=== PATIENT | male | born 1960 | race Caucasian/White ===

== ENCOUNTER 2016-04-24 15:05 | Inpatient (IN) | payer MEDICAID, OTHER ==
[2016-04-24] MEDS ORDERED: SODIUM CHLORIDE 0.9% 1,000 ML with MVI, ADULT NO.4 WITH VIT K 10 ML, THIAMINE 100 MG, F... IV ONE ×4 (15:12)
[2016-04-24] MEDS ORDERED: SODIUM CHLORIDE 0.9% 1,000 ML IV STA ×2 (15:12→15:13)
[2016-04-24] MEDS ORDERED: SODIUM CHLORIDE 0.9% 2,000 ML IV ONE (15:12)
--- NOTE | 2016-04-24 15:19 | ED ---
Psych HPI - General Source: patient, EMS, RN notes reviewed, old records reviewed Mode of arrival: EMS - History of Present Illness MD Complaint: suicidal ideation, feels depressed, other <Stephen Stewart - Last Filed: 04/24/16 19:22> <Irwin King - Last Filed: 04/25/16 00:30> - General Stated Complaint: mental health Time Seen by Provider: 04/24/16 15:05 - History of Present Illness Initial Comments: This is a 55-year-old male history depression and alcoholism history of DVT in the past who called 911 today because he was feeling suicidal and depressed. He drank 1 pint of alcohol when he normally drinks 2 he has no other complaints he has no definite plan and how to hurt himself. He did vomit on himself and urinate on himself per EMS. No trauma is reported. Reports of fevers chills or sweats. (Stephen Stewart) - Related Data Home Medications Medication Instructions Recorded Confirmed No Known Home Medications [No 04/24/16 04/24/16 Known Home Medications] Allergies Allergy/AdvReac Type Severity Reaction Status Date / Time No Known Allergies Allergy Verified 04/24/16 15:29 Review of Systems ROS Other: All systems not noted in ROS Statement are negative. <Stephen Stewart - Last Filed: 04/24/16 19:22> ROS Other: All systems not noted in ROS Statement are negative. <Irwin King - Last Filed: 04/25/16 00:30> ROS Statement: Those systems with pertinent positive or pertinent negative responses have been documented in the HPI. Past Medical History Additional Past Medical History / Comment(s): ALCOHOL ABUSE History of Any Multi-Drug Resistant Organisms: None Reported Past Surgical History: No Surgical Hx Reported Past Anesthesia/Blood Transfusion Reactions: No Reported Reaction Past Psychological History: Depression Smoking Status: Current every day smoker Past Alcohol Use History: Abuse Additional Past Alcohol Use History / Comment(s): pt drinks a 5th of vodka daily Past Drug Use History: None Reported - Past Family History Father Family Medical History: Hypertension <Stephen Stewart - Last Filed: 04/24/16 19:22> General Exam General appearance: alert, in no apparent distress, lethargic Head exam: Present: atraumatic, normocephalic, normal inspection Eye exam: Present: normal appearance, PERRL, EOMI. Absent: scleral icterus, conjunctival injection, periorbital swelling ENT exam: Present: mucous membranes dry Neck exam: Present: normal inspection. Absent: tenderness, meningismus, lymphadenopathy Respiratory exam: Present: normal lung sounds bilaterally. Absent: respiratory distress, wheezes, rales, rhonchi, stridor Cardiovascular Exam: Present: normal rhythm, tachycardia, normal heart sounds. Absent: systolic murmur, diastolic murmur, rubs, gallop, clicks GI/Abdominal exam: Present: soft, normal bowel sounds. Absent: distended, tenderness, guarding, rebound, rigid Extremities exam: Present: normal inspection, full ROM, normal capillary refill. Absent: tenderness, pedal edema, joint swelling, calf tenderness Back exam: Present: normal inspection Neurological exam: Present: alert, oriented X3, CN II-XII intact Psychiatric exam: Present: depressed, flat affect, suicidal ideation Skin exam: Present: warm, dry, intact, normal color. Absent: rash <Stephen Stewart - Last Filed: 04/24/16 19:22> <Irwin King - Last Filed: 04/25/16 00:30> - General Exam Comments Initial Comments: This is a well-developed well-nourished awake but lethargic male with the smell of alcohol conjoiners is on his breath (Stephen Stewart) Course <Stephen Stewart - Last Filed: 04/24/16 19:22> <Irwin King - Last Filed: 04/25/16 00:30> Vital Signs 04/24/16 04/24/16 04/24/16 15:28 16:23 17:32 Temperature 97.7 F Pulse Rate 110 H 95 96 Respiratory 20 18 18 Rate Blood Pressure 129/77 123/83 113/70 O2 Sat by Pulse 95 96 96 Oximetry 04/24/16 04/24/16 04/24/16 18:31 19:14 20:00 Temperature Pulse Rate 99 95 98 Respiratory 18 18 Rate Blood Pressure 110/59 105/57 O2 Sat by Pulse 99 97 97 Oximetry - Reevaluation(s) Reevaluation #1: 04/24/16 19:22 The patient will be endorsed to Dr. King who will make final disposition ( Stephen Stewart) Reevaluation #2: 04/25/16 00:30 Medically clear for psychiatric evaluation (Irwin King) Medical Decision Making - Lab Data Result diagrams: 04/24/16 15:23 04/24/16 15:23 <Stephen Stewart - Last Filed: 04/24/16 19:22> - Lab Data Result diagrams: 04/24/16 15:23 04/24/16 15:23 <Irwin King - Last Filed: 04/25/16 00:30> - Medical Decision Making 55 male here for evaluation of psychiatric disease, positive alcohol intoxication, patient will be admitted for psychiatric evaluation and treatment (Irwin King) - Lab Data Lab Results 04/24/16 04/24/16 04/24/16 Range/Units 15:23 15:23 15:23 WBC 8.4 (3.8-10.6) k/uL RBC 5.67 (4.30-5.90) m/uL Hgb 17.4 (13.0-17.5) gm/dL Hct 53.2 H (39.0-53.0) % MCV 93.8 (80.0-100.0) fL MCH 30.6 (25.0-35.0) pg MCHC 32.6 (31.0-37.0) g/dL RDW 13.7 (11.5-15.5) % Plt Count 222 (150-450) k/uL Neutrophils % (Manual) 65.0 % Lymphocytes % (Manual) 29.0 % Monocytes % (Manual) 6.0 % Neutrophils # (Manual) 5.5 (1.3-7.7) k/uL Lymphocytes # (Manual) 2.4 (1.0-4.8) k/uL Monocytes # (Manual) 0.5 (0-1.0) k/uL Nucleated RBCs 0 (0-0) /100 WBC Anisocytosis (manual) Present Sodium 143 (137-145) mmol/L Potassium 4.4 (3.5-5.1) mmol/L Chloride 98 (98-107) mmol/L Carbon Dioxide 22 (22-30) mmol/L Anion Gap 23 mmol/L BUN 11 (9-20) mg/dL Creatinine 0.82 (0.66-1.25) mg/dL Est GFR (MDRD) Af Amer >60 (>60 ml/min/1.73 sqM) Est GFR (MDRD) Non-Af >60 (>60 ml/min/1.73 sqM) Glucose 96 (74-99) mg/dL Calcium 8.6 (8.4-10.2) mg/dL Magnesium 1.7 (1.6-2.3) mg/dL Total Bilirubin 0.7 (0.2-1.3) mg/dL AST 63 H (17-59) U/L ALT 70 (21-72) U/L Alkaline Phosphatase 88 (38-126) U/L Total Protein 6.8 (6.3-8.2) g/dL Albumin 4.2 (3.5-5.0) g/dL Salicylates <1.0 mg/dL Urine Opiates Screen Not Detected (NotDetected) Ur Oxycodone Screen Not Detected (NotDetected) Urine Methadone Screen Not Detected (NotDetected) Ur Propoxyphene Screen Not Detected (NotDetected) Acetaminophen <10.0 ug/mL Ur Barbiturates Screen Not Detected (NotDetected) U Tricyclic Antidepress Not Detected (NotDetected) Ur Phencyclidine Scrn Not Detected (NotDetected) Ur Amphetamines Screen Not Detected (NotDetected) U Methamphetamines Scrn Not Detected (NotDetected) U Benzodiazepines Scrn Not Detected (NotDetected) Urine Cocaine Screen Not Detected (NotDetected) U Marijuana (THC) Screen Not Detected (NotDetected) Serum Alcohol 285 mg/dL Disposition <Stephen Stewart - Last Filed: 04/24/16 19:22> <Irwin King - Last Filed: 04/25/16 00:30> Clinical Impression: Alcohol intoxication, Suicidal ideation, Depression Disposition: TRANSFER TO PSYCH HOSP/UNIT Condition: Fair Referrals: Michael Lainez MD [Primary Care Provider] - 1-2 days
[2016-04-24 15:47] LABS: CH 31.2; CHCM 33.5; HCT 53.2 % (39.0-53.0); HDW 2.48; HGB 17.4 gm/dL (13.0-17.5); MCH 30.6 pg (25.0-35.0); MCHC 32.6 g/dL (31.0-37.0); MCV 93.8 fL (80.0-100.0); MPO Flag Slight; Mean Platelet Volume 6.8; RBC 5.67 m/uL (4.30-5.90); RDW 13.7 % (11.5-15.5); WBC 8.4 k/uL (3.8-10.6); WBC (Perox) 42.19
[2016-04-24 15:54] LABS: ALT 70 U/L (21-72); AST 63 U/L (17-59); Acetaminophen <10.0 ug/mL; Alkaline Phosphatase 88 U/L (38-126); Anion Gap 23 mmol/L; Blood Urea Nitrogen 11 mg/dL (9-20); Calcium 8.6 mg/dL (8.4-10.2); Carbon Dioxide 22 mmol/L (22-30); Chloride 98 mmol/L (98-107); Glucose 96 mg/dL (74-99); Magnesium 1.7 mg/dL (1.6-2.3); Non-African American GFR(MDRD) >60 (>60 ml/min/1.73 sqM); Potassium 4.4 mmol/L (3.5-5.1); Salicylate <1.0 mg/dL; Sodium 143 mmol/L (137-145); Total Bilirubin 0.7 mg/dL (0.2-1.3); Total Protein 6.8 g/dL (6.3-8.2)
[2016-04-24 15:57] LABS: Alcohol 285 mg/dL
[2016-04-24 16:23] LABS: Add Differential Manual Differential
[2016-04-24 16:25] LABS: Nucleated Red Blood Cells 0 /100 WBC (0-0); Total Cells Counted 100
[2016-04-24] MEDS ORDERED: ONDANSETRON 4 MG/2 ML VIAL IVP STA ×2 (17:29→23:24)
[2016-04-24] MEDS ORDERED: PROMETHAZINE INJ 25 MG in SODIUM CHLORIDE 0.9% 50 ML IVPB STA (18:45)
[2016-04-25] MEDS ORDERED: MAG HYDROX/AL HYDROX/SIMETH 30 ML CUP PO PRN (03:58)
[2016-04-25] MEDS ORDERED: MAGNESIUM HYDROXIDE 2,400 MG/10 ML CUP PO PRN (03:58)
[2016-04-25] MEDS ORDERED: ACETAMINOPHEN TAB 325 MG TAB PO PRN (03:58)
[2016-04-25] MEDS: LORazepam 1 MG TAB PO PRN ×5 (05:10→21:04)
[2016-04-25] MEDS: NICOTINE 21MG/24HR PATCH TRANSDERM SCH (08:27)
--- NOTE | 2016-04-25 14:40 | P.HP ---
Psychiatric H&P - . History & Physical: Allergies Allergy/AdvReac Type Severity Reaction Status Date / Time No Known Allergies Allergy Verified 04/24/16 15:29 Vital Signs Temp 98.2 F 04/25/16 12:11 Pulse 107 H 04/25/16 12:11 Resp 20 04/25/16 12:11 BP 126/70 04/25/16 12:11 Pulse Ox 97 04/25/16 12:11 Laboratory Last Values WBC 8.4 k/uL (3.8-10.6) 04/24/16: RBC 5.67 m/uL (4.30-5.90) 04/24/16: Hgb 17.4 gm/dL (13.0-17.5) 04/24/16: Hct 53.2 % (39.0-53.0) H 04/24/16: MCV 93.8 fL (80.0-100.0) 04/24/16: MCH 30.6 pg (25.0-35.0) 04/24/16: MCHC 32.6 g/dL (31.0-37.0) 04/24/16: RDW 13.7 % (11.5-15.5) 04/24/16: Plt Count 222 k/uL (150-450) 04/24/16: Neutrophils % (Manual) 65.0 % 04/24/16: Lymphocytes % (Manual) 29.0 % 04/24/16: Monocytes % (Manual) 6.0 % 04/24/16: Neutrophils # (Manual) 5.5 k/uL (1.3-7.7) 04/24/16: Lymphocytes # (Manual) 2.4 k/uL (1.0-4.8) 04/24/16: Monocytes # (Manual) 0.5 k/uL (0-1.0) 04/24/16: Nucleated RBCs 0 /100 WBC (0-0) 04/24/16 Anisocytosis (manual) Present 04/24/16 15: Sodium 143 mmol/L (137-145) 04/24/16: Potassium 4.4 mmol/L (3.5-5.1) 04/24/16 15: Chloride 98 mmol/L (98-107) 04/24/16 15: Carbon Dioxide 22 mmol/L (22-30) 04/24/16 15: Anion Gap 23 mmol/L 04/24/16 15: BUN 11 mg/dL (9-20) 04/24/16: Creatinine 0.82 mg/dL (0.66-1.25) 04/24/16: Est GFR (MDRD) Af Amer >60 (>60 ml/min/1.73 sqM) 04/24/16: Est GFR (MDRD) Non-Af >60 (>60 ml/min/1.73 sqM) 04/24/16: Glucose 96 mg/dL (74-99) 04/24/16: Calcium 8.6 mg/dL (8.4-10.2) 04/24/16: Magnesium 1.7 mg/dL (1.6-2.3) 04/24/16: Total Bilirubin 0.7 mg/dL (0.2-1.3) 04/24/16: AST 63 U/L (17-59) H 04/24/16: ALT 70 U/L (21-72) 04/24/16: Alkaline Phosphatase 88 U/L (38-126) 04/24/16: Total Protein 6.8 g/dL (6.3-8.2) 04/24/16: Albumin 4.2 g/dL (3.5-5.0) 04/24/16: TSH 1.020 mIU/L (0.465-4.680) 04/24/16: Salicylates <1.0 mg/dL 04/24/16: Urine Opiates Screen Not Detected (NotDetected) 04/24/16: Ur Oxycodone Screen Not Detected (NotDetected) 04/24/16: Urine Methadone Screen Not Detected (NotDetected) 04/24/16: Ur Propoxyphene Screen Not Detected (NotDetected) 04/24/16 15: Acetaminophen <10.0 ug/mL 02/10/17 15:23 Ur Barbiturates Screen Not Detected (NotDetected) 04/24/16 15:23 U Tricyclic Antidepress Not Detected (NotDetected) 04/24/16 15:23 Ur Phencyclidine Scrn Not Detected (NotDetected) 04/24/16 15:23 Ur Amphetamines Screen Not Detected (NotDetected) 04/24/16 15:23 U Methamphetamines Scrn Not Detected (NotDetected) 04/24/16 15:23 U Benzodiazepines Scrn Not Detected (NotDetected) 04/24/16 15:23 Urine Cocaine Screen Not Detected (NotDetected) 04/24/16 15:23 U Marijuana (THC) Screen Not Detected (NotDetected) 04/24/16 15:23 Serum Alcohol 285 mg/dL 04/24/16 15:23 04/25/16 14:29 IDENTIFYING DATA: This patient is a 55-year-old twice male who was admitted to the mental health unit through the emergency room after he called 911 reporting suicidal ideation. HPI: The patient states he's been experiencing depression due to seasonal affective disorder. He reports a long history of major depressive episodes. He has a history of alcohol use disorder and reports he was sober for 1 year and relapsed 4 days ago. He states there was no precipitant. He has been consuming a plate to a pint and a half daily for 4 days. He presented with a serum alcohol level of 285. He states that he did have suicidal thoughts yesterday but none today. In fact he demands to be discharged now as he is supposed to take a flight to [place] at 6:30 AM tomorrow. He is now minimizing symptoms and states that his sleep appetite energy are all stable. He is endorsing no tearfulness or crying spells. He reports intermittent symptoms of anxiety but no significant panic attacks. He denies any history of hypomanic or manic episodes. He is reporting no homicidal thoughts and no presence of any auditory or visual hallucinations. He denies having any specific delusions. He reports having no ownership of firearms. He states because of seasonal affective symptoms and feeling lonely he had suicidal thoughts last night in the context of being intoxicated with alcohol. PAST PSYCHIATRIC HISTORY: This is the patient's second psychiatric admission. His first was on this unit under the care of Dr. Negrete in May 2015. He has previously been treated with BuSpar, trazodone, Celexa. He reports she's been on no psychotropic medications since last January. He states he does not intend on restarting any psychotropic medication. He used to attend outpatient mental health services at [facility] but no longer attends since September. No history of suicide attempts no other self-injurious behavior reported. PMH: History of deep venous thrombosis in 2016 ALLERGIES: NO KNOWN DRUG ALLERGIES MEDICATIONS: None CHEMICAL DEPENDENCY HISTORY: Recent relapse with alcohol use 1-1-1/2 pints per day for 4 days. He reports being sober for 1 year prior to that. He does have a history of drinking alcohol excessively for 30 years with the maximum being 1/ 5 per day. His longest none sobriety was 2 years. He was in [place] inpatient in 2007. FAMILY PSYCHIATRIC HISTORY: Paternal grandfather committed suicide psychiatric diagnosis unknown FAMILY CHEMICAL DEPENDENCY HISTORY: Maternal grandfather alcohol dependent SOCIAL HISTORY: The patient is 55 years old he is twice . His second divorce was finalized in September. He has 2 biological adult children and 1 stepchild. One of his children resides in [place] the other is in [place]. 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 He has a high school education with 2 years of trade school. He has 1 brother and 1 sister. He states his family is in [place] and he is supposed to fly down and take possession of a condo where he will reside alone. Abuse history none reported legal history he states he was arrested for driving on a suspended license prior documentation suggests that he did have a DUI arrest. He was born and raised in the [place] area he states his parents were supportive. MENTAL STATUS EXAM: The patient is a balding male appearing his stated age. He seated calmly eye contact is appropriate speech is fluent and spontaneous nonpressured. He presents to the hospital reporting symptoms of depression with suicidal ideation. At this moment he recants that history and states he stable. He is reporting no homicidal ideation. He denies having any auditory or visual hallucinations he is reporting no specific delusions. There is no verbal or physical aggressiveness. He is oriented to person place and date. He is able to spell world backwards. He is able to recall 3 words after delay of approximate 3 minutes. Insight and judgment limited. Thought process for the most part can be linear, he can be somewhat circular in asking me the same question over and over regarding his discharge. He demonstrates no loose associations or flight of ideas. He maintains a constricted affect. STRENGTHS/WEAKNESSES: Strengths: Reported support from family, housing, willingness to present for treatment weaknesses: Ongoing use of alcohol INTELLECTUAL FUNCTIONING: Average IMPRESSIONS: [] 1. Major depressive disorder recurrent, alcohol use disorder 2. Remote history of DVT 3. Psychosocial dysfunction due to psychiatric symptoms including alcohol use disorder PLAN: The patient has been admitted to the mental health unit he has signed in voluntarily. We reviewed his symptoms. He is minimizing his symptoms at this time he is not agreeable to the initiation of an antidepressant medication. We are monitoring his vital signs in using Ativan as needed to prevent alcohol withdrawal which is unlikely if his report is correct. We have requested a routine medical consultation. Social work will meet with the patient to complete a psychosocial assessment and begin discharge planning. With reluctance the patient is willing to have us contact his parents as he identifies no local support. The patient is encouraged to participate in the milieu we will monitor him for safety. We will need an appropriate length of time to observe and evaluate his safety risk. We will continue the conversation regarding use of an antidepressant. At this point he does not wish to have us arrange inpatient chemical dependency treatment. We will discuss that further.
[2016-04-25 16:35] VITALS: BMI 25.0
--- NOTE | 2016-04-25 20:37 | CONS ---
DATE OF CONSULTATION: CHIEF COMPLAINT: Major depression and alcohol overdose. HISTORY OF PRESENT ILLNESS: This is another admission for this 55-year-old white male. He apparently was drinking heavily and was brought into the emergency room. It was determined that he was majorly depressed and a threat to himself and he was admitted. He has been on [facility] before. He is on no medications. REVIEW OF SYSTEMS: He has had no delirium tremens, diplopia, chest pain or shortness of breath, abdominal pain, nausea, vomiting, hematemesis, melena, hematochezia, jaundice, pancreatitis, kidney disease, diabetes, etc. Past medical history, family history, personal and social histories are all otherwise unremarkable or noncontributory. He has had no surgery. He is not allergic to any medication. He is not currently taking any. He has quit smoking, but he does drink heavily. PHYSICAL EXAMINATION: VITAL SIGNS: Blood pressure is 116/84 with a pulse of 91, respirations 35 and he is afebrile. GENERAL: Appeared to be somewhat disheveled. He was not in DTs. Skin color is normal. Skin is warm and dry. Lymph nodes are not enlarged. Head, ears, eyes, nose, mouth, and throat were normal. Pupils are equal, round, reactive. Ears are clear. Extraocular movements are normal. Nose, mouth, and throat were normal. Neck veins not distended. Chest is clear. Cardiac exam is normal. Abdomen is soft, nontender. Extremities are normal. IMPRESSION: 1. Major depression. 2. Alcoholism. RECOMMENDATIONS: None at this time. He is very anxious to leave the hospital today stating he has to catch a plane tomorrow to [place]. He may sign out AGAINST MEDICAL ADVICE.
[2016-04-26] MEDS: LORazepam 1 MG TAB PO PRN ×5 (03:43→21:34)
[2016-04-26] MEDS: NICOTINE 21MG/24HR PATCH TRANSDERM SCH (08:29)
--- NOTE | 2016-04-26 11:26 | P.PN ---
Progress Note - Text Interval history: The patient is found in the hallway he follows me to an interview room. He states his mood is stable he reports he was able to sleep last night appetite is intact. He reports that he has showered. He is attending groups. We again discussed the potential need for an antidepressant and he does not wish to start one. He states that when he is sober for an extended period his mood symptoms subside. He reports he will consider starting her medication once he is down in [place]. Mental status exam: The patient is alert he seated calmly eye contact is appropriate speech is fluent spontaneous nonpressured. He reports his mood is "fine" affect is constricted. He denies having any hopelessness thinking or any suicidal or homicidal ideation intent or plan. He is reporting no racing thoughts there is no evidence of any hypomania or richard. He is endorsing no hallucinations there is no evidence of psychosis. He is reporting no specific delusions. Insight and judgment grossly intact. He is oriented to person place and date. There is no physical evidence of withdrawal from alcohol. He demonstrates no verbal or physical aggressiveness. Plan: We will continue to monitor him for safety blood pressure is within normal limits he remains tachycardic he continues to use Ativan as needed. This most recent crisis is likely due to his recent alcohol intoxication. He does appear to be stabilizing here on the mental health unit. He again verbalizes it is his plan to immediately leave for [place] permanently upon discharge. He continues to have no contact information for his parents who will assist him in [place]. Consider discharge in the next 1-2 days.
[2016-04-27] MEDS: LORazepam 1 MG TAB PO PRN ×2 (03:38→10:12)
[2016-04-27 05:06] VITALS: BP 126/73; PULSE 116; RESP 12; TEMP 97.8
[2016-04-27] MEDS: NICOTINE 21MG/24HR PATCH TRANSDERM SCH (10:11)
--- NOTE | 2016-04-27 10:18 | DS ---
DATE OF ADMISSION: 04/25/2016 DATE OF DISCHARGE: 04/27/2016 CONSULTING PROVIDER: Michael Carilsle reason for medical management. DISCHARGE DIAGNOSES: 1. Unspecified depression versus chronic depression. 2. Alcohol abuse and dependence For brief summary of the admission notes, please refer to the history and physical examination dictated by Dr. Josue Landeros on April 25. Patient presented to the mental health unit after he had 1 pint of alcohol, then he called 911 reporting depression and suicidal ideation. Patient reports that he has been experiencing depression due to seasonal affective disorder. Patient was sober for almost one year and relapsed 4 days ago with any trigger. At the time of his admission to the mental health unit, his blood alcohol was 285. Throughout his hospitalization he denied any suicidal ideation. HOSPITAL COURSE: Patient was admitted on voluntary basis. He was started on CIWA for alcohol detox. Since his admission to the mental health unit, he denied any suicidal thought. He stated that he was supposed to take a flight to [place] but he has insurance on it and postponed it for today as he decided to move to [place] to stay with his friend for good. Patient denied any depressive symptoms, denied any hopeless or helpless feeling. He stated that he used to be depressed when he was because "My was the reason but now since the divorce, I'm feeling okay." Patient reports having no firearms and he stated that he just felt more depressed because he was intoxicated and because he did relapse after one year of sobriety. Patient met with Dr. Landeros 2 days in row and each time patient was not receptive to start any anti-depression medication and he stated that he preferred having no psychotropic medication and dealing with his drinking by attending AA meetings. The mental status examination at the time of the discharge, patient alert, good eye contact. His hygiene and grooming are adequate. Speech is spontaneous and non-pressured. Thought process is linear. He reports no homicidal or suicide ideation or intent or plan. He does not have access to any firearms. He does not feel hopeless or helpless. He did realize that he did relapse and usually alcohol does make him more depressed. His insight to his extended history of alcohol use is good. There is no evidence of hypomania or richard. There is no evidence of psychosis. Cognitive ability has remained stable across the hospitalization as he is alert, oriented to person, place and date. There is no verbal or physical aggression observed. PLAN: Patient will be discharged from the mental health unit today. Patient is planning to take flight tonkirsten to [place] to stay with his parent and pursue alcohol treatment. Patient CIWA at the time of the discharge was 0. Patient is not going through any alcohol withdrawal symptom. He denied suicidal or homicide ideation. Patient was instructed to return to the emergency room if any acute safety concern. Patient was instructed to maintain his sobriety from alcohol and he is aware about the effect of alcohol on his physical and mental status.
== END 2016-04-27 12:16 | disposition home or self-care (01) | DRG 885 ==
LOC: EC 15:05 → 3MHU 04-25 03:19
PROVIDERS: ADMIT Psychiatry & Neurology Psychiatry; ATTEND Psychiatry & Neurology Psychiatry
DX: F33.9 Major depressive disorder, recurrent, unspecified (principal); R45.851 Suicidal ideations; F10.239 Alcohol dependence with withdrawal, unspecified; F10.229 Alcohol dependence with intoxication, unspecified; F17.200 Nicotine dependence, unspecified, uncomplicated; T51.0X1A Toxic effect of ethanol, accidental (unintentional), initial encounter; Y90.8 Blood alcohol level of 240 mg/100 ml or more; Z86.718 Personal history of other venous thrombosis and embolism; Z81.8 Family history of other mental and behavioral disorders; Z81.1 Family history of alcohol abuse and dependence
CPT/HCPCS: 36415; 80053; 80306; 80320; 82075; 83520; 83735; 84443; 85025; 96365; 96366; 96375; 96376; 99285

== ENCOUNTER 2016-05-04 13:22 | Emergency (ER) | payer OTHER ==
[2016-05-04] MEDS ORDERED: LORazepam 2 MG/ML SYRINGE IV STA ×3 (14:07→22:13)
[2016-05-04] MEDS ORDERED: ONDANSETRON 4 MG/2 ML VIAL IVP STA (14:07)
[2016-05-04 14:39] LABS: Basophils % (A) 0 %; CH 31.6; CHCM 34.8; Eosinophils # (A) 0.1 k/uL (0-0.7); Eosinophils % (A) 1 %; HCT 47.7 % (39.0-53.0); HDW 2.48; HGB 15.8 gm/dL (13.0-17.5); Luc # (Auto) 0.13; Luc % (Auto) 2; Lymphocytes # (A) 1.5 k/uL (1.0-4.8); Lymphocytes % (A) 19 %; MCH 30.4 pg (25.0-35.0); MCHC 33.2 g/dL (31.0-37.0); MCV 91.3 fL (80.0-100.0); Mean Platelet Volume 7.5; Monocytes # (A) 0.6 k/uL (0-1.0); Monocytes % (A) 7 %; Neutrophils # (A) 5.3 k/uL (1.3-7.7); Neutrophils % (A) 70 %; RBC 5.22 m/uL (4.30-5.90); RDW 14.4 % (11.5-15.5); WBC 7.6 k/uL (3.8-10.6); WBC (Perox) 7.64
[2016-05-04 14:46] LABS: Anion Gap 15 mmol/L; Blood Urea Nitrogen 12 mg/dL (9-20); Calcium 7.8 mg/dL (8.4-10.2); Carbon Dioxide 28 mmol/L (22-30); Chloride 98 mmol/L (98-107); Glucose 125 mg/dL (74-99); Non-African American GFR(MDRD) >60 (>60 ml/min/1.73 sqM); Potassium 3.8 mmol/L (3.5-5.1); Sodium 141 mmol/L (137-145)
[2016-05-05] MEDS ORDERED: ONDANSETRON ODT 4 MG TAB PO STA ×2 (02:20→10:09)
[2016-05-05] MEDS ORDERED: LORazepam 2 MG/ML SYRINGE IV STA ×2 (02:20→06:55)
--- NOTE | 2016-05-05 03:29 | ED ---
General Adult HPI - General Chief complaint: Alcohol Stated complaint: ETOH Time Seen by Provider: 05/04/16 13:33 Source: patient, EMS, RN notes reviewed Mode of arrival: EMS Limitations: no limitations - History of Present Illness Initial comments: Patient was earlier seen by Dr. Bruno however chart was not completed at that time. Patient was seen by mental health services who is searching for beds for dual diagnosis. Patient is a pleasant 55-year-old male. Patient presents emergency department with concerns for alcohol problems. Patient admits to being depressed and having thoughts to harm himself. No homicidal thoughts. No street drug use. No hallucinations. No physical complaints. - Related Data Home Medications Medication Instructions Recorded Confirmed No Known Home Medications [No 04/24/16 05/04/16 Known Home Medications] Allergies Allergy/AdvReac Type Severity Reaction Status Date / Time No Known Allergies Allergy Verified 05/04/16 13:37 Review of Systems ROS Statement: Those systems with pertinent positive or pertinent negative responses have been documented in the HPI. ROS Other: All systems not noted in ROS Statement are negative. Constitutional: Denies: fever Eyes: Denies: eye pain ENT: Denies: ear pain Respiratory: Denies: cough Cardiovascular: Denies: chest pain Endocrine: Denies: fatigue Gastrointestinal: Reports: nausea, vomiting Genitourinary: Denies: dysuria Musculoskeletal: Denies: back pain Skin: Denies: rash Neurological: Denies: weakness Past Medical History Past Medical History: No Reported History Additional Past Medical History / Comment(s): ALCOHOL ABUSE History of Any Multi-Drug Resistant Organisms: None Reported Past Surgical History: No Surgical Hx Reported Past Anesthesia/Blood Transfusion Reactions: No Reported Reaction Past Psychological History: Depression Smoking Status: Former smoker Past Alcohol Use History: Abuse Additional Past Alcohol Use History / Comment(s): pt drinks a 5th of vodka daily Past Drug Use History: None Reported - Past Family History Father Family Medical History: Hypertension General Exam Limitations: no limitations General appearance: alert, in no apparent distress Head exam: Present: atraumatic Eye exam: Present: normal appearance, PERRL ENT exam: Present: normal oropharynx Neck exam: Present: normal inspection Respiratory exam: Present: normal lung sounds bilaterally Cardiovascular Exam: Present: regular rate, normal rhythm GI/Abdominal exam: Present: soft. Absent: tenderness Extremities exam: Present: normal inspection Neurological exam: Present: alert Psychiatric exam: Present: depressed Skin exam: Absent: rash Course Vital Signs 05/04/16 05/04/16 05/04/16 13:30 17:47 22:23 Temperature 99 F Pulse Rate 108 H 109 H 115 H Respiratory 16 20 18 Rate Blood Pressure 151/91 130/76 136/73 O2 Sat by Pulse 98 96 Oximetry 05/05/16 04:00 Temperature 98.9 F Pulse Rate 78 Respiratory 16 Rate Blood Pressure 109/58 O2 Sat by Pulse 98 Oximetry Medical Decision Making - Medical Decision Making Mental health services plans on transfer. Positive clinical certificate completed. - Lab Data Result diagrams: 05/04/16 14:30 05/04/16 14:30 Lab Results 05/04/16 05/04/16 05/04/16 Range/Units 14:30 14:30 18:32 WBC 7.6 (3.8-10.6) k/uL RBC 5.22 (4.30-5.90) m/uL Hgb 15.8 (13.0-17.5) gm/dL Hct 47.7 (39.0-53.0) % MCV 91.3 (80.0-100.0) fL MCH 30.4 (25.0-35.0) pg MCHC 33.2 (31.0-37.0) g/dL RDW 14.4 (11.5-15.5) % Plt Count 191 (150-450) k/uL Neutrophils % 70 % Lymphocytes % 19 % Monocytes % 7 % Eosinophils % 1 % Basophils % 0 % Neutrophils # 5.3 (1.3-7.7) k/uL Lymphocytes # 1.5 (1.0-4.8) k/uL Monocytes # 0.6 (0-1.0) k/uL Eosinophils # 0.1 (0-0.7) k/uL Basophils # 0.0 (0-0.2) k/uL Sodium 141 (137-145) mmol/L Potassium 3.8 (3.5-5.1) mmol/L Chloride 98 (98-107) mmol/L Carbon Dioxide 28 (22-30) mmol/L Anion Gap 15 mmol/L BUN 12 (9-20) mg/dL Creatinine 0.70 (0.66-1.25) mg/dL Est GFR (MDRD) Af Amer >60 (>60 ml/min/1.73 sqM) Est GFR (MDRD) Non-Af >60 (>60 ml/min/1.73 sqM) Glucose 125 H (74-99) mg/dL Calcium 7.8 L (8.4-10.2) mg/dL Urine Opiates Screen Not Detected (NotDetected) Ur Oxycodone Screen Not Detected (NotDetected) Urine Methadone Screen Not Detected (NotDetected) Ur Propoxyphene Screen Not Detected (NotDetected) Ur Barbiturates Screen Not Detected (NotDetected) U Tricyclic Antidepress Not Detected (NotDetected) Ur Phencyclidine Scrn Not Detected (NotDetected) Ur Amphetamines Screen Not Detected (NotDetected) U Methamphetamines Scrn Not Detected (NotDetected) U Benzodiazepines Scrn Not Detected (NotDetected) Urine Cocaine Screen Not Detected (NotDetected) U Marijuana (THC) Screen Not Detected (NotDetected) Disposition Clinical Impression: Depression, Suicidal ideation, Alcohol abuse, Alcohol intoxication Disposition: TRANSFER TO PSYCH HOSP/UNIT
[2016-05-05 07:51] LABS: Appearance,Urine Cloudy (Clear); Bilirubin,Urine Negative (Negative); Glucose,Urine (UA) 1+ (Negative); Leukocyte Esterase,Urine Negative (Negative); Mucus,Urine Many /hpf; Nitrite,Urine Negative (Negative); Particle Count 10858; Protein,Urine 2+ (Negative); RBC,Urine 5 /hpf (0-5); Specific Gravity,Urine 1.021 (1.001-1.035); UA Billing (MACRO vs. MICRO) MICRO; Urobilinogen,Urine <2.0 mg/dL (<2.0); WBC,Urine 5 /hpf (0-5)
[2016-05-05 08:13] LABS: Ketones,Urine 2+ (Negative)
[2016-05-05 10:35] VITALS: PULSE 94
--- NOTE | 2016-05-05 13:24 | ED ---
Medical Decision Making - Medical Decision Making The patient was evaluated by [facility] service. Patient will be discharged outpatient referral and follow-up. He is not suicidal or homicidal at this time. - Lab Data Result diagrams: 05/04/16 14:30 05/04/16 14:30 Lab Results 05/04/16 05/04/16 05/04/16 Range/Units 14:30 14:30 18:32 WBC 7.6 (3.8-10.6) k/uL RBC 5.22 (4.30-5.90) m/uL Hgb 15.8 (13.0-17.5) gm/dL Hct 47.7 (39.0-53.0) % MCV 91.3 (80.0-100.0) fL MCH 30.4 (25.0-35.0) pg MCHC 33.2 (31.0-37.0) g/dL RDW 14.4 (11.5-15.5) % Plt Count 191 (150-450) k/uL Neutrophils % 70 % Lymphocytes % 19 % Monocytes % 7 % Eosinophils % 1 % Basophils % 0 % Neutrophils # 5.3 (1.3-7.7) k/uL Lymphocytes # 1.5 (1.0-4.8) k/uL Monocytes # 0.6 (0-1.0) k/uL Eosinophils # 0.1 (0-0.7) k/uL Basophils # 0.0 (0-0.2) k/uL Sodium 141 (137-145) mmol/L Potassium 3.8 (3.5-5.1) mmol/L Chloride 98 (98-107) mmol/L Carbon Dioxide 28 (22-30) mmol/L Anion Gap 15 mmol/L BUN 12 (9-20) mg/dL Creatinine 0.70 (0.66-1.25) mg/dL Est GFR (MDRD) Af Amer >60 (>60 ml/min/1.73 sqM) Est GFR (MDRD) Non-Af >60 (>60 ml/min/1.73 sqM) Glucose 125 H (74-99) mg/dL Calcium 7.8 L (8.4-10.2) mg/dL Urine Color Urine Appearance (Clear) Urine pH (5.0-8.0) Ur Specific [place] (1.001-1.035) Urine Protein (Negative) Urine Glucose (UA) (Negative) Urine Ketones (Negative) Urine Blood (Negative) Urine Nitrate (Negative) Urine Bilirubin (Negative) Urine Urobilinogen (<2.0) mg/dL Ur Leukocyte Esterase (Negative) Urine RBC (0-5) /hpf Urine WBC (0-5) /hpf Hyaline Casts (0-2) /lpf Urine Mucus (None) /hpf Urine Opiates Screen Not Detected (NotDetected) Ur Oxycodone Screen Not Detected (NotDetected) Urine Methadone Screen Not Detected (NotDetected) Ur Propoxyphene Screen Not Detected (NotDetected) Ur Barbiturates Screen Not Detected (NotDetected) U Tricyclic Antidepress Not Detected (NotDetected) Ur Phencyclidine Scrn Not Detected (NotDetected) Ur Amphetamines Screen Not Detected (NotDetected) U Methamphetamines Scrn Not Detected (NotDetected) U Benzodiazepines Scrn Not Detected (NotDetected) Urine Cocaine Screen Not Detected (NotDetected) U Marijuana (THC) Screen Not Detected (NotDetected) 05/05/16 Range/Units 07:30 WBC (3.8-10.6) k/uL RBC (4.30-5.90) m/uL Hgb (13.0-17.5) gm/dL Hct (39.0-53.0) % MCV (80.0-100.0) fL MCH (25.0-35.0) pg MCHC (31.0-37.0) g/dL RDW (11.5-15.5) % Plt Count (150-450) k/uL Neutrophils % % Lymphocytes % % Monocytes % % Eosinophils % % Basophils % % Neutrophils # (1.3-7.7) k/uL Lymphocytes # (1.0-4.8) k/uL Monocytes # (0-1.0) k/uL Eosinophils # (0-0.7) k/uL Basophils # (0-0.2) k/uL Sodium (137-145) mmol/L Potassium (3.5-5.1) mmol/L Chloride (98-107) mmol/L Carbon Dioxide (22-30) mmol/L Anion Gap mmol/L BUN (9-20) mg/dL Creatinine (0.66-1.25) mg/dL Est GFR (MDRD) Af Amer (>60 ml/min/1.73 sqM) Est GFR (MDRD) Non-Af (>60 ml/min/1.73 sqM) Glucose (74-99) mg/dL Calcium (8.4-10.2) mg/dL Urine Color Yellow Urine Appearance Cloudy (Clear) Urine pH 6.0 (5.0-8.0) Ur Specific [place] 1.021 (1.001-1.035) Urine Protein 2+ H (Negative) Urine Glucose (UA) 1+ H (Negative) Urine Ketones 2+ H (Negative) Urine Blood Small H (Negative) Urine Nitrate Negative (Negative) Urine Bilirubin Negative (Negative) Urine Urobilinogen <2.0 (<2.0) mg/dL Ur Leukocyte Esterase Negative (Negative) Urine RBC 5 (0-5) /hpf Urine WBC 5 (0-5) /hpf Hyaline Casts 4 H (0-2) /lpf Urine Mucus Many H (None) /hpf Urine Opiates Screen (NotDetected) Ur Oxycodone Screen (NotDetected) Urine Methadone Screen (NotDetected) Ur Propoxyphene Screen (NotDetected) Ur Barbiturates Screen (NotDetected) U Tricyclic Antidepress (NotDetected) Ur Phencyclidine Scrn (NotDetected) Ur Amphetamines Screen (NotDetected) U Methamphetamines Scrn (NotDetected) U Benzodiazepines Scrn (NotDetected) Urine Cocaine Screen (NotDetected) U Marijuana (THC) Screen (NotDetected) Disposition Clinical Impression: Depression, Suicidal ideation, Alcohol abuse, Alcohol intoxication, Adjustment disorder Disposition: HOME SELF-CARE Condition: Good Instructions: Alcohol Intoxication (ED), Depression (ED), Anxiety (ED) Additional Instructions: Follow-up with outpatient treatment as per [facility] Referrals: None,Stated [Primary Care Provider] - 1-2 days
[2016-05-05 13:28] VITALS: BP 126/71; RESP 16; TEMP 98.1
== END 2016-05-05 14:07 | disposition home or self-care (01) ==
LOC: EC 13:22
DX: F10.129 Alcohol abuse with intoxication, unspecified (principal); F43.20 Adjustment disorder, unspecified; F41.8 Other specified anxiety disorders; R45.851 Suicidal ideations; Z87.891 Personal history of nicotine dependence
CPT/HCPCS: 99284; 96374; 96375; 96376 ×3; 82075; 36415; 80048; 85025; 81001; 80306; J2060 ×2; J2405

== ENCOUNTER 2016-05-13 00:58 | Emergency (ER) | payer SELFPAY ==
--- NOTE | 2016-05-13 01:24 | ED ---
Psych HPI - General Source: patient, police, EMS Mode of arrival: EMS <Lindsay Grayson - Last Filed: 05/13/16 06:58> <Irwin Cruz - Last Filed: 05/13/16 11:16> - General Chief Complaint: Psychiatric Symptoms Stated Complaint: ETOH Time Seen by Provider: 05/13/16 01:13 - History of Present Illness Initial Comments: Physical history of depression and has been drinking he wanted to kill himself he said these thoughts pain crossing his mind for about a week now he said he tried week ago tried to drink himself to . He has been drinking today he do not exactly much alcohol he had any system he denies any street drugs. He is not on any antidepressant at this point and he is not seeing any psychiatrist at this point either. He denies any headaches no chest pain or shortness of breath no abdominal pain no frequency urgency dysuria (Lindsay Grayson ) - Related Data Home Medications Medication Instructions Recorded Confirmed No Known Home Medications [No 04/24/16 05/13/16 Known Home Medications] Allergies Allergy/AdvReac Type Severity Reaction Status Date / Time No Known Allergies Allergy Verified 05/13/16 07:37 Review of Systems ROS Other: All systems not noted in ROS Statement are negative. <Lindsay Grayson - Last Filed: 05/13/16 06:58> ROS Other: All systems not noted in ROS Statement are negative. <Irwin Cruz - Last Filed: 05/13/16 11:16> ROS Statement: Those systems with pertinent positive or pertinent negative responses have been documented in the HPI. Past Medical History Past Medical History: No Reported History Additional Past Medical History / Comment(s): ALCOHOL ABUSE History of Any Multi-Drug Resistant Organisms: None Reported Past Surgical History: No Surgical Hx Reported Past Anesthesia/Blood Transfusion Reactions: No Reported Reaction Past Psychological History: Depression Smoking Status: Former smoker Past Alcohol Use History: Abuse Additional Past Alcohol Use History / Comment(s): pt drinks a 5th of vodka daily Past Drug Use History: None Reported - Past Family History Father Family Medical History: Hypertension <Lindsay Grayson - Last Filed: 05/13/16 06:58> General Exam Limitations: no limitations <Lindsay Grayson - Last Filed: 05/13/16 06:58> <Irwin Cruz - Last Filed: 05/13/16 11:16> - General Exam Comments Initial Comments: General: The patient is awake and alert, in no distress, Skin: Skin is warm and dry and no rashes or lesions are noted. Eye: Pupils are equal, round and reactive to light, extra-ocular movements are intact; there is normal conjunctiva bilaterally. Ears, nose, mouth and throat: There are moist mucous membranes and no oral lesions. Neck: The neck is supple, there is no tenderness or JVD. Cardiovascular: There is a regular rate and rhythm. No murmur, rub or gallop is appreciated. Respiratory: To auscultation bilateral, no wheezing no rhonchi no distress respiratory knight noticed Gastrointestinal: Soft, non-distended, non-tender abdomen without masses or organomegaly noted. There is no rebound or guarding present. Bowel sounds are unremarkable. Back: There is no tenderness to palpation in the midline. There is no obvious deformity. Musculoskeletal: Normal ROM, no tenderness, There is no pedal edema. There is no calf tenderness or swelling. No cords were appreciated. Neurological: CN II-XII intact, Cranial nerves III through XII are intact. There are no obvious motor or sensory deficits. Coordination appears grossly intact. Speech is normal. Psychiatric: Cooperative, intoxicated, stating that he wants to kill himself, he would need them psych eval around 10 AM (Lindsay Grayson) Course <Lindsay Grayson - Last Filed: 05/13/16 06:58> <Irwin Cruz - Last Filed: 05/13/16 11:16> Vital Signs 05/13/16 05/13/16 05/13/16 00:59 03:35 07:20 Temperature 98.5 F 99.0 F Pulse Rate 111 H 110 H 101 H Respiratory 18 18 12 Rate Blood Pressure 141/83 138/79 113/72 O2 Sat by Pulse 96 95 94 L Oximetry 05/13/16 10:24 Temperature 97.1 F L Pulse Rate 111 H Respiratory 14 Rate Blood Pressure 129/77 O2 Sat by Pulse 94 L Oximetry SHEENT is reassessed at 6 AM, he is more awake now denies pulse rate is below 100 and he said he been falling he hit his head 3 times now, will go ahead and now CT his brain and a considering getting a skin risk of DTs will give him a second dose of Valium 10 mg by mouth now , At 650 Patient was reassessed again, reviewed his head CT which is normal may be endorsed to Dr. Cruz who is morning shift and he be edited by department of psychiatry (Lindsay Grayson) Disposition <Lindsay Grayson - Last Filed: 05/13/16 06:58> Time of Disposition: 11:16 <Irwin Cruz - Last Filed: 05/13/16 11:16> Clinical Impression: Alcohol intoxication, Suicidal ideation, Alcohol intoxication, Situational depression Disposition: HOME SELF-CARE Condition: Good Instructions: Alcohol Intoxication (ED), Abuse of Alcohol (ED) Additional Instructions: Patient is to follow-up with rehabilitation Center so that he does not continue to drink alcohol. Referrals: Michael Lainez MD [Primary Care Provider] - 1-2 days
[2016-05-13] MEDS ORDERED: ACETAMINOPHEN TAB 500 MG TAB PO STA (03:34)
[2016-05-13] MEDS ORDERED: DIAZEPAM 5 MG TAB PO STA ×3 (03:38→07:24)
--- NOTE | 2016-05-13 06:56 | CT ---
EXAM: CT Head Without Intravenous Contrast. CLINICAL HISTORY: Reason: Pain TECHNIQUE: Axial computed tomography images of the head/brain without intravenous contrast. CTDI is 59.43 mGy and DLP is 1155.90 mGy-cm COMPARISON: No relevant prior studies available. FINDINGS: Brain: Unremarkable. No hemorrhage. No significant white matter disease. No edema. Ventricles: Unremarkable. No ventriculomegaly. Bones/joints: Unremarkable. No acute fracture. Soft tissues: Unremarkable. Sinuses: Mild paranasal sinus mucosal thickening. Right maxillary sinus polyp or mucous retention cyst. No fluid levels Mastoid air cells: Unremarkable as visualized. No mastoid effusion. Other findings: Mild volume loss. IMPRESSION: No evidence of acute intracranial abnormality.
[2016-05-13] MEDS ORDERED: KETOROLAC 30 MG/ML 1 ML VIAL IVP STA (07:25)
[2016-05-13] MEDS ORDERED: ONDANSETRON 4 MG/2 ML VIAL IVP STA (08:11)
[2016-05-13] MEDS ORDERED: ONDANSETRON ODT 4 MG TAB PO STA (11:46)
[2016-05-13 11:58] VITALS: BP 124/68; PULSE 78; RESP 18; TEMP 97.7
== END 2016-05-13 11:58 | disposition home or self-care (01) ==
LOC: EC 00:58
DX: F43.21 Adjustment disorder with depressed mood (principal); F10.129 Alcohol abuse with intoxication, unspecified; R45.851 Suicidal ideations; Z87.891 Personal history of nicotine dependence
CPT/HCPCS: 99284; 96374; 96375; 82075; 80306; 70450; J2405; J1885